=== PATIENT | male | born 1985 | race Caucasian/White ===

== ENCOUNTER 2021-09-09 00:21 | Emergency (ER) | payer SELFPAY ==
[~2021-09-09] VITALS: Ht 172.7 cm; Wt 65.8 kg
--- NOTE | 2021-09-09 00:47 | NUR ---
BIB SELF C/O DOG BITE TO THE FOREHEAD/ MIDDLE BROW 2HRS PRIOR TO ARRIVAL. BLEEDING CONTROLLED ON ARRIVAL EDGES WELL APPROXIMATED. VS STABLE MD AT BEDSIDE FOR EVAL.
[2021-09-09] MEDS ORDERED: AMOX/CLAVULANATE 875 MG TABLET PO ONE (01:00)
[2021-09-09] MEDS ORDERED: LIDOCAINE 0.5% HCL 50 ML VIAL ONE (01:06)
[2021-09-09] MEDS ORDERED: AMOX/CLAVULANATE 875 MG TABLET ONE (01:17)
[2021-09-09] MEDS ORDERED: AMOX-430 PO (01:31)
--- NOTE | 2021-09-09 01:36 | NUR ---
Patient discharged to home in stable condition. Written and verbal after care instructions given. Patient verbalizes understanding of instruction.
[2021-09-09 01:41] VITALS: BP 140/83
== END 2021-09-09 01:41 | disposition home or self-care (01) ==
LOC: ER 00:25
DX: S01.81XA Laceration without foreign body of other part of head, initial encounter (principal); S01.23XA Puncture wound without foreign body of nose, initial encounter; F17.200 Nicotine dependence, unspecified, uncomplicated; Z60.2 Problems related to living alone; W54.0XXA Bitten by dog, initial encounter; Y93.89 Activity, other specified; Y92.89 Other specified places as the place of occurrence of the external cause; Y99.8 Other external cause status
CPT/HCPCS: 12011; 99283; J3490